=== PATIENT | male | born 1960 | race Asian ===

== ENCOUNTER 2021-12-25 22:42 | Emergency (ER) | payer OTHER ==
[~2021-12-25] VITALS: Ht 165.1 cm; Wt 64.4 kg
[2021-12-26] MEDS ORDERED: HYDROCODON-ACE1 EAC9 PO (00:19)
[2021-12-26 00:30] VITALS: BP 161/89
[2021-12-26] MEDS ORDERED: HYDROCODONE/APAP 5MG-325MG TAB PO ONE (00:30)
== END 2021-12-26 00:30 | disposition home or self-care (01) ==
LOC: FSED 23:14
DX: K08.89 Other specified disorders of teeth and supporting structures (principal); I10 Essential (primary) hypertension; E78.5 Hyperlipidemia, unspecified; F17.210 Nicotine dependence, cigarettes, uncomplicated
CPT/HCPCS: 99282

== ENCOUNTER 2023-10-18 03:23 | Emergency (ER) | payer OTHER ==
[~2023-10-18] VITALS: Ht 162.6 cm; Wt 67.1 kg
[~2023-10-18 03:23] MED LIST: HYDROCODON-ACE1 EAC9 PO
[2023-10-18 03:34] VITALS: PULSE 70; RESP 20; TEMP 98.5
[2023-10-18] MEDS: IBUPROFEN 600 MG TAB PO STA (04:44)
[2023-10-18 05:03] VITALS: BP 130/73; PULSE 75; RESP 18; TEMP 98.5; O2SAT 97
[2023-10-18] MEDS ORDERED: CORICIDIN HBP1 EAC8 PO (05:11)
[2023-10-18] MEDS ORDERED: VENTOLIN HFA18 GM INH (05:12)
== END 2023-10-18 05:25 | disposition home or self-care (01) ==
LOC: FSED 03:28
DX: R05.9 Cough, unspecified (principal); U07.1 COVID-19; I10 Essential (primary) hypertension; E78.00 Pure hypercholesterolemia, unspecified; E78.5 Hyperlipidemia, unspecified; F17.210 Nicotine dependence, cigarettes, uncomplicated
CPT/HCPCS: 99283